=== PATIENT | male | born 1990 ===

== ENCOUNTER 2019-01-27 00:45 | Emergency (ER) | payer SELFPAY ==
[2019-01-27 01:13] VITALS: BMI 38.4
[2019-01-27 01:18] VITALS: TEMP 98.5; O2SAT 100
--- NOTE | 2019-01-27 01:38 | ED PDOC ---
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 Patient states pain constant; worse during exertion with associated palpitations. Denies fever, nausea/vomiting, shortness of breath, leg pain/swelling, recent travel. <Ya Franklin - Last Filed: 01/27/19 05:42> <Marco A Garsia - Last Filed: 01/27/19 06:11> Time Seen by Provider: 01/27/19 01:04 Chief Complaint (Nursing): Chest Pain Past Medical History Reviewed: Historical Data, Nursing Documentation, Vital Signs Vital Signs: Last Vital Signs Temp 98.5 F 01/27/19 01:13 Pulse 89 01/27/19 01:13 Resp 18 01/27/19 01:13 BP 122/73 01/27/19 01:13 Pulse Ox 100 01/27/19 01:13 Primary Care Provider: Procedure,Nonphys - Medical History PMH: HTN - Surgical History Surgical History: No Surg Hx - Family History Family History: States: No Known Family Hx <Ya Franklin - Last Filed: 01/27/19 05:42> Vital Signs: Last Vital Signs Temp 98.5 F 01/27/19 01:13 Pulse 89 01/27/19 01:13 Resp 18 01/27/19 01:13 BP 122/73 01/27/19 01:13 Pulse Ox 100 01/27/19 05:43 <Marco A Garsia Y - Last Filed: 01/27/19 06:11> - Allergies Allergies/Adverse Reactions: Allergies Allergy/AdvReac Type Severity Reaction Status Date / Time No Known Allergies Allergy Verified 01/27/19 01:13 DEDE Risk Score for UA/NSTEMI - DEDE Risk Score Age > 64: NO 3 or more CAD Risk Factors: NO Known CAD (Stenosis greater than 50%): NO Aspirin use in past 7 days: NO Severe Angina: NO EKG ST changes greater than 0.5mm: NO Positive Cardiac Marker: NO DEDE Score: 0 Risk %: 5% <Ya Franklin C - Last Filed: 01/27/19 05:42> Review of Systems ROS Statement: Except As Marked, All Systems Reviewed And Found Negative Cardiovascular: Positive for: Chest Pain <Ya Franklin C - Last Filed: 01/27/19 05:42> Physical Exam - Reviewed Nursing Documentation Reviewed: Yes Vital Signs Reviewed: Yes - Physical Exam Appears: Positive for: Well, Non-toxic, No Acute Distress Head Exam: Positive for: ATRAUMATIC, NORMAL INSPECTION, NORMOCEPHALIC Skin: Positive for: Normal Color Eye Exam: Positive for: Normal appearance ENT: Positive for: Normal ENT Inspection Cardiovascular/Chest: Positive for: Regular Rate, Rhythm Respiratory: Positive for: Normal Breath Sounds Gastrointestinal/Abdominal: Positive for: Normal Exam Back: Positive for: Normal Inspection Extremity: Positive for: Normal ROM Neurological/Psych: Positive for: Awake, Alert, Oriented (x3) <Ya Franklin C - Last Filed: 01/27/19 05:42> - Laboratory Results Result Diagrams: 01/27/19 02:01 01/27/19 02:01 - ECG ECG: Positive for: Viewed By Me (reviewed by ED attending) ECG Rhythm: Positive for: Sinus Rhythm O2 Sat by Pulse Oximetry: 100 - Radiology X-Ray: Viewed By Me X-Ray Interpretation: No Acute Disease - Progress ED Course And Treament: -cbc -cmp -cxr -ekg -bus driver/monitor <Ya Franklin C - Last Filed: 01/27/19 05:42> - Laboratory Results Result Diagrams: 01/27/19 02:01 01/27/19 02:01 Lab Results: Troponin I < 0.0120 ng/mL (0.00-0.120) 01/27/19 02:01 Total Bilirubin 0.3 mg/dl (0.2-1.3) 01/27/19 02:01 AST 31 U/L (17-59) 01/27/19 02:01 ALT 44 U/L (21-72) 01/27/19 02:01 Alkaline Phosphatase 136 U/L (38-126) H 01/27/19 02:01 Total Protein 7.9 G/DL (6.3-8.2) 01/27/19 02:01 Albumin 4.2 g/dL (3.5-5.0) 01/27/19 02:01 Globulin 3.6 gm/dL (2.2-3.9) 01/27/19 02:01 Albumin/Globulin Ratio 1.2 (1.0-2.1) 01/27/19 02:01 <Marco A Garsia Y - Last Filed: 01/27/19 06:11> Medical Decision Making Medical Decision Makin Patient currently pending repeat troponin. If negative, patient to be discharged home. 0610 Second troponin level negative Patient is stable for discharge home. Informed to follow up with PMD in 1-2 days. Patient given return precautions. Scribe Attestation: Documented by Yoly Muñiz acting as a scribe for Marco A Garsia MD. Provider Scribe Attestation: All medical record entries made by the Scribe were at my direction and personally dictated by me. I have reviewed the chart and agree that the record accurately reflects my personal performance of the history, physical exam, medical decision making, and the department course for this patient. I have also personally directed, reviewed, and agree with the discharge instructions and disposition. <Marco A Garsia Y - Last Filed: 01/27/19 06:11> Disposition - Patient ED Disposition Is Patient to be Admitted: No - Disposition Disposition Time: 06:00 Patient Signed Over To: Marco A Garsia Handoff Comments: pending repeat trop and final dispo <Ya Franklin - Last Filed: 01/27/19 05:42> - Disposition Disposition: Routine/Home Disposition Time: 06:11 <Marco A Garsia - Last Filed: 01/27/19 06:11> - Clinical Impression Clinical Impression: Chest pain - Disposition Referrals: [facility] [Outside] Condition: STABLE Forms: [employer] (Yoruba)
[2019-01-27 02:08] LABS: BASO % 0.4 % (0.0-2.0); EOS # 0.3 K/uL (0.0-0.7); HEMOGLOBIN 12.7 g/dL (12.0-18.0); LYMPH # 3.3 K/uL (1.0-4.3); LYMPH % 26.1 % (20.0-40.0); MEAN CELL VOLUME 85.4 fl (80.0-94.0); MEAN PLATELET VOLUME 8.6 fl (7.2-11.7); MONO # 0.8 K/uL (0.0-0.8); MONO % 6.6 % (0.0-10.0); NEUT # 8.2 K/uL (1.8-7.0); NEUT % 64.9 % (50.0-75.0); NRBC % 0.1 % (0.0-0.0); RBC 4.39 Mil/uL (4.40-5.90); RED CELL DISTRIBUTION WIDTH 13.9 % (11.5-14.5); WHITE BLOOD COUNT 12.7 K/uL (4.8-10.8)
[2019-01-27 02:24] LABS: ALB/GLOB RATIO 1.2 (1.0-2.1); ALBUMIN 4.2 g/dL (3.5-5.0); ALT/SGPT 44 U/L (21-72); AST/SGOT 31 U/L (17-59); BLOOD UREA NITROGEN 14 mg/dl (9-20); CALCIUM 8.6 mg/dL (8.4-10.2); GFR NON-AFRICAN AMERICAN > 60
[2019-01-27 07:13] VITALS: BP 125/72; PULSE 78; RESP 16
--- NOTE | 2019-01-27 08:13 | RAD ---
Date of service: 01/27/2019 HISTORY: chest pain COMPARISON: No prior. TECHNIQUE: Chest PA and lateral views FINDINGS: LUNGS: No active pulmonary disease. PLEURA: No significant pleural effusion identified. No pneumothorax apparent. CARDIOVASCULAR: No aortic atherosclerotic calcification present. Normal cardiac size. No pulmonary vascular congestion. OSSEOUS STRUCTURES: No significant abnormalities. VISUALIZED UPPER ABDOMEN: Normal. OTHER FINDINGS: None. IMPRESSION: No acute cardiopulmonary disease appreciated.
== END 2019-01-27 07:00 | disposition home or self-care (01) ==
LOC: H.ER 00:45
DX: R07.9 Chest pain, unspecified (principal); I10 Essential (primary) hypertension